=== PATIENT | male | born 1960 | race Caucasian/White ===

== ENCOUNTER 2019-01-09 20:49 | Inpatient (IN) ==
[2019-01-09] MEDS ORDERED: MORPHINE IV ONE (21:07)
[2019-01-09] MEDS ORDERED: ZOFRAN IV ONE (21:07)
[2019-01-09 21:57] LABS: BASO# 0.02 X1000 (0.0-0.2); BASO% 0.3 % (0.0-0.8); EOS# 0.13 X1000 (0.0-0.7); EOS% 2.3 % (0.0-10.0); HEMATOCRIT 36.7 % (42.0-52.0); HEMOGLOBIN 12.6 g/dL (14.0-18.0); LYMPH# 3.25 X1000 (1.2-3.4); LYMPH% 56.8 % (20.5-51.1); MCHC 34.3 g/dL (33-37); MCV 98.9 FL (81-99); MONO# 0.53 X1000 (0.11-0.59); MONO% 9.3 % (1.7-9.3); MPV 10.2 FL (7.4-10.4); NEUT# 1.79 X1000 (1.4-6.5); NEUT% 31.3 % (42.2-75.2); PLT 180 X1000 (130-400); RBC 3.71 XMIL (4.7-6.1); RDW 13.6 % (11.5-14.5); WBC 5.72 X1000 (4.8-10.8)
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
[2019-01-09 22:21] LABS: AGAP 14; ALB/GLOB RATIO 2.1; ALBUMIN 3.7 g/dL (3.5-5.0); ALKALINE PHOSPHATASE 54 U/L (32-122); BUN 13 mg/dL (8-22); CALCIUM 8.3 mg/dL (8.8-10.2); CHLORIDE 104 mmol/L (98-107); COSMO 282; CREATININE 0.6 mg/dL (0.7-1.2); ESTIMATED GFR > 60; GLUCOSE 107 mg/dL (70-104); GOT 47 U/L (10-34); GPT 19 U/L (10-44); POTASSIUM 4.1 mmol/L (3.5-5.1); SODIUM 141 mmol/L (136-145); TCO2 23 mmol/L (25-35); TOTAL BILIRUBIN 0.15 mg/dL (0.20-1.00); TOTAL PROTEIN 5.5 g/dL (6.3-8.3)
[2019-01-09] MEDS ORDERED: M.V.I.-12 10 ML, FOLIC ACID 1 MG, MAGNESIUM SULFATE 1 GM, THIAMINE 100 MG in NS 1,000 ML IV ONE (22:48)
[2019-01-09 23:26] LABS: INR 0.88; PROTIME 12.7 Seconds (11.0-16.0)
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
[2019-01-10 00:31] LABS: URINE SOURCE CATH
[2019-01-10 00:36] LABS: BILIRUBIN URINE NEGATIVE (NEGATIVE); BLOOD URINE TRACE (NEGATIVE); COLOR YELLOW; GLUCOSE URINE NEGATIVE (NEGATIVE); KETONE URINE NEGATIVE (NEGATIVE); LEUKOCYTES URINE NEGATIVE (NEGATIVE); NITRITE URINE NEGATIVE (NEGATIVE); PROTEIN URINE NEGATIVE (NEGATIVE); SP GRAVITY URINE 1.016; TURBIDITY URINE CLEAR (CLEAR); UR EPITHELIAL CELLS <10 /HPF (<10); URINE BACTERIA NEGATIVE /HPF; URINE RBC <10 /HPF (<10); URINE WBC <10 /HPF (<10); UROBILINOGEN URINE NORMAL (NORMAL)
[2019-01-10] MEDS ORDERED: TYLENOL PO PRN (00:55)
[2019-01-10] MEDS ORDERED: ATIVAN IV PRN (00:55)
[2019-01-10] MEDS ORDERED: NS 1,000 ML IV SCH (00:55)
[2019-01-10 00:56] LABS: UR AMPHETAMINES QUAL NONE DETECTED (NONE DETECT); UR BARBITUATES QUAL NONE DETECTED (NONE DETECT); UR BENZODIAZEPIN QUAL NONE DETECTED (NONE DETECT); UR CANNABINOIDS QUAL NONE DETECTED (NONE DETECT); UR COCAINE QUAL NONE DETECTED (NONE DETECT); UR METHADONE QUAL NONE DETECTED (NONE DETECT); UR OPIATES QUAL PRESUMPTIVE POSITIVE (NONE DETECT); UR OXYCODONE QUAL NONE DETECTED (NONE DETECT); UR PCP QUAL NONE DETECTED (NONE DETECT)
[2019-01-10] MEDS: LIBRIUM PO SCH ×4 (01:09→18:34)
[2019-01-10 01:10] LABS: HEMATOCRIT 35.1 % (42.0-52.0); HEMOGLOBIN 11.7 g/dL (14.0-18.0)
[2019-01-10] MEDS: MORPHINE IV PRN ×2 (01:53→07:05)
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
[2019-01-10] MEDS ORDERED: ZOFRAN IV PRN ×2 (03:30→13:27)
[2019-01-10 07:09] LABS: BASO# 0.01 X1000 (0.0-0.2); BASO% 0.1 % (0.0-0.8); EOS# 0.04 X1000 (0.0-0.7); EOS% 0.6 % (0.0-10.0); HEMATOCRIT 31.5 % (42.0-52.0); HEMOGLOBIN 10.5 g/dL (14.0-18.0); IMM GRAN# 0.02 X1000 (0.0-0.04); IMM GRAN% 0.3 % (0.0-0.5); LYMPH# 2.17 X1000 (1.2-3.4); LYMPH% 31.2 % (20.5-51.1); MCH 33.3 PG (27-31); MCHC 33.3 g/dL (33-37); MONO# 0.65 X1000 (0.11-0.59); MONO% 9.3 % (1.7-9.3); MPV 10.7 FL (7.4-10.4); NEUT# 4.07 X1000 (1.4-6.5); NEUT% 58.5 % (42.2-75.2); PLT 152 X1000 (130-400); RBC 3.15 XMIL (4.7-6.1); RDW 13.7 % (11.5-14.5); WBC 6.96 X1000 (4.8-10.8)
[2019-01-10 07:18] LABS: URINE SOURCE CATH
[2019-01-10 07:22] LABS: BILIRUBIN URINE NEGATIVE (NEGATIVE); BLOOD URINE SMALL (NEGATIVE); COLOR YELLOW; GLUCOSE URINE NEGATIVE (NEGATIVE); KETONE URINE NEGATIVE (NEGATIVE); LEUKOCYTES URINE NEGATIVE (NEGATIVE); NITRITE URINE NEGATIVE (NEGATIVE); PH URINE 5.5; PROTEIN URINE TRACE mg/dL (NEGATIVE); SP GRAVITY URINE 1.025; TURBIDITY URINE CLEAR (CLEAR); UROBILINOGEN URINE NORMAL (NORMAL)
[2019-01-10 07:25] LABS: AGAP 6; BUN 9 mg/dL (8-22); CALCIUM 7.2 mg/dL (8.8-10.2); CHLORIDE 104 mmol/L (98-107); COSMO 271; CREATININE 0.5 mg/dL (0.7-1.2); ESTIMATED GFR > 60; GLUCOSE 98 mg/dL (70-104); MAGNESIUM 1.7 mg/dL (1.5-2.7); PHOSPHORUS 3.8 mg/dL (2.7-4.5); POTASSIUM 3.6 mmol/L (3.5-5.1); SODIUM 136 mmol/L (136-145); TCO2 26 mmol/L (25-35)
--- NOTE | 2019-01-10 07:27 | Diag Imaging Result Doc PS360 ---
EXAM: CHEST-1 VIEW 01/09/2019 HISTORY: pre-op TECHNIQUE: AP portable at 2218 COMMENT: There is no evidence of acute cardiac or pulmonary disease. There may be COPD. There are some old left rib fractures. IMPRESSION: COPD. Electronically signed by Yaya Washington 01/10/2019 7:24 AM
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
[2019-01-10 07:32] LABS: UR EPITHELIAL CELLS <10 /HPF (<10); URINE BACTERIA NEGATIVE /HPF; URINE WBC <10 /HPF (<10)
[2019-01-10 07:35] LABS: URINE CASTS NONE SEEN; URINE CRYSTALS NONE SEEN; URINE YEAST NONE SEEN
[2019-01-10 07:36] LABS: URINE SMALL ROUND CELLS NONE SEEN
--- NOTE | 2019-01-10 07:45 | EKG Report ---
Test Performed on : 01/09/2019 11:52:14 PM Test Reason : pre-op Blood Pressure : / mmHG Vent. Rate : 094 BPM Atrial Rate : 094 BPM P-R Int : 136 ms QRS Dur : 086 ms QT Int : 368 ms P-R-T Axes : 073 090 075 degrees QTc Int : 460 ms Sinus rhythm. with marked sinus arrhythmia. Rightward axis Borderline ECG No previous ECGs available Unconfirmed Result
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
--- NOTE | 2019-01-10 09:36 | Diag Imaging Result Doc PS360 ---
EXAM: ELBOW COMPLETE RIGHT 01/10/2019 HISTORY: elbow pain TECHNIQUE: Right elbow three views COMMENT: There is a fracture through the olecranon fossa without significant displacement. There is no evidence of dislocation. There is a hemarthrosis. IMPRESSION: Fracture proximal ulna. Electronically signed by Yaya Washington 01/10/2019 9:34 AM
[2019-01-10] MEDS ORDERED: DIPRIVAN 1% ONE (09:56)
[2019-01-10] MEDS ORDERED: KEFZOL 1 GM/D5W 1 GM/50 ML IVPB ONE (10:48)
[2019-01-10] MEDS ORDERED: VERSED ONE (10:48)
[2019-01-10] MEDS ORDERED: DECADRON ONE (11:59)
[2019-01-10] MEDS ORDERED: ZOFRAN ONE (11:59)
[2019-01-10] MEDS ORDERED: XYLOCAINE-MPF 2% ONE (11:59)
[2019-01-10] MEDS ORDERED: FENTANYL ONE (12:03)
--- NOTE | 2019-01-10 12:59 | OPERATIVE NOTE ---
PROCEDURE DATE : 01/09/2019 PREOPERATIVE DIAGNOSES: 1. Right subtrochanteric femur fracture. 2. Right nondisplaced olecranon fracture. POSTOPERATIVE DIAGNOSES: 1. Right subtrochanteric femur fracture. 2. Right nondisplaced olecranon fracture. PROCEDURES PERFORMED: 1. TFN fixation of right subtrochanteric femur fracture. 2. Casting of right elbow olecranon fracture. SURGEON: Dr. Juan Hilliard BRAND RECORDER: Moncho Morris. Mr. Morris was necessary for proper retraction, manipulation and exposure of the procedures. ANESTHESIA: General. COMPLICATIONS: None. DESCRIPTION OF PROCEDURE: This 58-year-old male presents for reduction of right subtrochanteric femur fracture as well as casting of the right elbow. Risks, benefits and no guarantees were discussed, and he is willing to proceed. He was taken to the operating room, and satisfactory anesthesia was obtained. The right arm was placed in a long arm cast initially. This was well padded and applied and allowed to set. He was then transferred to the HANA table in gentle longitudinal traction in neutral rotation utilized to reduce the subtrochanteric femur fracture. The area was prepped and draped and a time- out taken to confirm operative site, procedure and patient. Lateral incision was made roughly 3 cm above the tip of the greater trochanter and dissection carried down to the tip of the trochanter under fluoroscopic guidance. A guidepin was then advanced through the tip of the trochanter and down the intramedullary canal and reamed with the entry reamer. This was removed and a ball-tipped guidewire inserted down the shaft. Length of the femur was selected at 440 x 11 femoral nail. A 12 mm reamer was used to ream over the guidewire. The nail was then inserted over the guidewire and fully seated and the guidewire removed. An additional lateral portal was made opposite the lesser trochanter for placement of the helical blade guide. The guide was advanced down to bone and a guidepin placed across the fracture and nail into the central aspect of the femoral neck and head with care taken to avoid any articular penetration. A 110 helical blade was selected and after reaming for this inserted over the guidewire and guidewire removed. The antirotation screw was set proximally and the guide removed from the proximal aspect of the nail. The C-arm was used to verify accurate fracture reduction and hardware placement on the proximal part of the nail. Afterwards, rotation and traction was adjusted to maintain leg length and proper rotation and 2 distal screws placed, 1 through the dynamic and 1 through the static slot to maintain the reduction using perfect hopi imaging technique. Two lateral incisions were made, and the C-arm guidance was used to place a 46 and a 48 bicortical screw through the distal aspect of the nail. Afterwards, the C-arm was utilized to verify accurate fracture reduction and hardware placement. The wounds were then irrigated and closed in layers with 2-0 Vicryl followed by skin tyler. Sterile dressings completed the closure, and the patient was recovered from anesthesia and transferred to the recovery room in stable condition. No intraoperative complications. Instrument count and sponge count were correct at the end of closure. cc: Juan Hilliard MD
[2019-01-10] MEDS: MORPHINE ONE ×3 (13:03→13:09)
[2019-01-10] MEDS ORDERED: MORPHINE IV PRN (13:27)
[2019-01-10] MEDS ORDERED: MILK OF MAGNESIA PO PRN (13:27)
[2019-01-10] MEDS ORDERED: HALDOL IV PRN (13:30)
[2019-01-10] MEDS: TYLENOL PO SCH ×3 (13:52→23:53)
[2019-01-10] MEDS: OXY IR PO PRN (13:52)
[2019-01-10] MEDS: NS 1,000 ML IV SCH ×2 (14:31→17:35)
[2019-01-10] MEDS: KEFZOL 1 GM/D5W 1 GM/50 ML IVPB IV SCH (18:34)
[2019-01-10] MEDS: NICODERM PATCH TD SCH (20:51)
[2019-01-10] MEDS: COLACE PO SCH (20:51)
[2019-01-10] MEDS ORDERED: SODIUM CHLORIDE 0.9% INJ SCH (22:15)
--- NOTE | 2019-01-10 22:31 | PROGRESS NOTE ---
DATE: 01/10/2019 SUBJECTIVE: Patient has no major complaints. He is seen postoperatively doing well. OBJECTIVE: Blood pressure is 106/70, heart rate 79, respiratory 18, temperature 97.5 degrees, 99% on room air.Cardiovascular: Regular rate and rhythm. Pulmonary: Bilateral breath sounds clear to auscultation. GI: Soft, nontender, nondistended. Bowel sounds are positive. LABORATORY DATA: White count 6, hemoglobin and hematocrit 10 and 31, platelets 152,000. Coags within normal limits. PROBLEM LIST: 1. Right hip fracture and right humeral fracture. He seems to be doing okay. Plan is to ORIF today. We will continue treatment. 2. Withdrawal syndrome. We will continue to monitor closely. 3. Need DVT GI prophylaxis. cc: Jonah Jimenez MD
[2019-01-11] MEDS ORDERED: M.V.I.-12 10 ML, FOLIC ACID 1 MG, MAGNESIUM SULFATE 1 GM, THIAMINE 100 MG in NS 1,000 ML IV SCH ×2 (00:15→10:01)
[2019-01-11] MEDS: LIBRIUM PO SCH ×4 (00:19→18:00)
[2019-01-11] MEDS: PEPCID IV SCH ×2 (00:19→11:56)
[2019-01-11] MEDS: MORPHINE IV PRN ×2 (00:30→18:26)
[2019-01-11] MEDS: KEFZOL 1 GM/D5W 1 GM/50 ML IVPB IV SCH (04:01)
[2019-01-11] MEDS: TYLENOL PO SCH ×3 (06:07→22:23)
[2019-01-11] MEDS: LOVENOX SUBQ SCH (06:07)
[2019-01-11 06:26] LABS: HEMATOCRIT 24.6 % (42.0-52.0); HEMOGLOBIN 8.1 g/dL (14.0-18.0)
[2019-01-11 06:40] LABS: AGAP 6; BUN 7 mg/dL (8-22); CALCIUM 7.5 mg/dL (8.8-10.2); CHLORIDE 104 mmol/L (98-107); COSMO 272; CREATININE 0.4 mg/dL (0.7-1.2); ESTIMATED GFR > 60; GLUCOSE 178 mg/dL (70-104); POTASSIUM 4.1 mmol/L (3.5-5.1); SODIUM 135 mmol/L (136-145); TCO2 25 mmol/L (25-35)
--- NOTE | 2019-01-11 08:00 | ORTHOPAEDICS PROGRESS NOTE ---
DATE: 01/11/2019 Mr. Larson is seen today status post closed TFN fixation of his hip and casting of his elbow. At the present time he is afebrile with stable vital signs. His hematocrit is 24. We will plan on mobilizing him today with a platform walker. We will see how he is mobilizing over the next several days. I would anticipate likely discharge home or to rehab center at the end of the week. cc: Juan Hilliard MD
[2019-01-11] MEDS: NICODERM PATCH TD SCH (08:41)
[2019-01-11] MEDS: FERROUS SULFATE PO SCH (08:41)
[2019-01-11] MEDS: NS 1,000 ML IV SCH (18:02)
[2019-01-11] MEDS: COLACE PO SCH (22:24)
--- NOTE | 2019-01-11 23:23 | PROGRESS NOTE ---
DATE: 01/11/2019 SUBJECTIVE: The patient is complaining of pain overall, but is overall doing well. OBJECTIVE: Blood pressure 112/76, heart rate 96, respiratory rate 18. Cardiovascular: Regular. Pulmonary: Bilateral breath sounds, clear to auscultation. GI: Soft, nontender, nondistended. Bowel sounds are positive. LABORATORY DATA: Hemoglobin and hematocrit 8 and 24. Basic electrolytes stable. ASSESSMENT AND PLAN: 1. Right hip fracture. Continue treatment. Gastrointestinal prophylaxis and follow closely. 2. Right nondisplaced olecranon fracture, for which he had casting. 3. Alcohol withdrawal syndrome. He seems to be stable. We will continue banana bag infusion, Librium taper and follow. 4. Gastrointestinal and deep venous thrombosis prophylaxis. We will continue Prilosec and deep venous thrombosis prophylaxis, and follow closely. 5. Disposition: The patient uninsured, unfortunately, so therefore will have difficulty with senior care facility placement, but we will continue to monitor closely. Work on physical therapy until he is ambulatory. Continue working with Social Work about outpatient options. cc: Jonah Jimenez MD
[2019-01-12] MEDS: LIBRIUM PO SCH ×3 (01:28→12:54)
[2019-01-12] MEDS: PEPCID IV SCH ×2 (06:08→09:47)
[2019-01-12] MEDS: TYLENOL PO SCH ×4 (06:11→21:40)
[2019-01-12] MEDS: LOVENOX SUBQ SCH (06:11)
[2019-01-12 07:35] LABS: AGAP 8; BUN 6 mg/dL (8-22); CALCIUM 7.8 mg/dL (8.8-10.2); CHLORIDE 106 mmol/L (98-107); COSMO 273; CREATININE 0.5 mg/dL (0.7-1.2); ESTIMATED GFR > 60; GLUCOSE 89 mg/dL (70-104); POTASSIUM 3.6 mmol/L (3.5-5.1); SODIUM 138 mmol/L (136-145); TCO2 24 mmol/L (25-35)
[2019-01-12 07:38] LABS: HEMATOCRIT 24.6 % (42.0-52.0); HEMOGLOBIN 8.1 g/dL (14.0-18.0)
[2019-01-12] MEDS: NICODERM PATCH TD SCH (09:46)
[2019-01-12] MEDS: PERIDEX MT SCH ×2 (09:47→21:41)
[2019-01-12] MEDS: FERROUS SULFATE PO SCH (09:47)
--- NOTE | 2019-01-12 13:02 | ORTHOPAEDICS PROGRESS NOTE ---
DATE: 01/12/2019 Mr. Larson is seen today status post casting of his elbow and fixation of his hip fracture. He is afebrile with stable vital signs. He is mobilizing but slowly due to the combined injuries of the upper and lower extremities. At this point in time, all incisions are clean and dry. I will need to see him next afternoon in the clinic to repeat the x-rays of the hip and elbow. He can be mobilized partial weightbearing on the right lower extremity and full weightbearing on the right upper extremity. He will need a platform walker for outpatient use. He can be discharged when his pain is controlled and there is no threat of alcohol withdrawal and he is mobilizing adequately for self-care. We will see him back in roughly 1 week's time for follow-up. We will be available as needed in the interim. cc: Juan Hilliard MD
[2019-01-12] MEDS: NS 1,000 ML IV SCH (16:36)
--- NOTE | 2019-01-12 19:18 | PROGRESS NOTE ---
DATE: 01/12/2019 SUBJECTIVE: The patient has no major complaints. OBJECTIVE: Vital signs: Seem stable. His blood pressure is 101/64, heart rate is 76, respiratory rate 20, temperature 98.5 degrees. No fevers. General: He is looking pretty well to me, all things considered. I think he is recuperating pretty well. Cardiovascular: Regular rate and rhythm. Pulmonary: Bilateral breath sounds clear to auscultation. Gastrointestinal: Soft, nontender, nondistended. Bowel sounds are positive. Extremities: No clubbing or cyanosis. Lymphatic: No peripheral edema. Neurological: Nonfocal. LABORATORY DATA: Today hemoglobin is down to 8 and hematocrit is down to 24, but they are stable. PROBLEM LIST: 1. Right hip fracture. The patient seems to be doing well. No major complaints. We are working on ambulation. He had a very severe, displaced hip fracture that was impressive, and then he had an ulnar fracture which did not look that displaced. In any case, he seems to be progressing very well. 2. Alcohol withdrawal syndrome. He is doing well. I am going to initiate a Librium taper and follow. 3. Disposition: He is homeless. He is uninsured. We will continue PT and OT until we feel like he is stable enough for discharge home. cc: Jonah Jimenez MD
[2019-01-12] MEDS: COLACE PO SCH (21:40)
[2019-01-13] MEDS: NS 1,000 ML IV SCH (05:55)
[2019-01-13] MEDS: PRILOSEC PO SCH ×2 (05:56→06:05)
[2019-01-13] MEDS: TYLENOL PO SCH ×3 (05:57→17:05)
[2019-01-13] MEDS: LOVENOX SUBQ SCH (05:57)
[2019-01-13 06:35] LABS: HEMATOCRIT 24.3 % (42.0-52.0)
[2019-01-13] MEDS: LIBRIUM PO SCH ×3 (08:36→17:05)
[2019-01-13] MEDS: THERA M PLUS PO SCH (08:36)
[2019-01-13] MEDS: FOLIC ACID PO SCH (08:37)
[2019-01-13] MEDS: VITAMIN B-1 PO SCH (08:37)
[2019-01-13] MEDS: FERROUS SULFATE PO SCH (08:37)
[2019-01-13] MEDS: PERIDEX MT SCH ×2 (08:38→20:02)
[2019-01-13] MEDS: NICODERM PATCH TD SCH (08:39)
[2019-01-13] MEDS: OXY IR PO PRN (08:45)
--- NOTE | 2019-01-13 18:07 | PROGRESS NOTE ---
DATE: 01/13/2019 SUBJECTIVE: The patient has no major complaints. OBJECTIVE: Blood pressure is stable, 120/74, heart rate 82, respiratory rate 15, temperature 98.5.Cardiovascular: Regular rate and rhythm. Pulmonary: Bilateral breath sounds clear to auscultation. GI: Soft, nontender, nondistended. Bowel sounds are positive. LABORATORY DATA: White count: Hemoglobin and hematocrit is 8 and 24. He seems to be doing okay. PROBLEM LIST: 1. Right hip fracture. Subtrochanteric fracture status post ORIF. He is doing well. He ambulated 20 feet today with PT. He seems to be doing okay, but we have very limited resources for him. He is self-pay. He is homeless, alcoholic. Looking at trying to get some sort of skilled nursing for him at least to recuperate in. 2. Alcohol withdrawal syndrome. He is on a Librium taper. We will continue to follow. No major issues associated. 3. Anemia, which is likely related to acute blood loss. We will check his iron stores and follow, although currently he is getting some iron. DISPOSITION: Pending clinical status. We will continue to follow closely. cc: Jonah Jimenez MD
[2019-01-13] MEDS: COLACE PO SCH (20:02)
[2019-01-14] MEDS: TYLENOL PO SCH ×3 (03:55→16:40)
[2019-01-14] MEDS: LOVENOX SUBQ SCH (06:07)
[2019-01-14] MEDS: PRILOSEC PO SCH (06:07)
[2019-01-14 07:26] LABS: BASO# 0.02 X1000 (0.0-0.2); BASO% 0.3 % (0.0-0.8); EOS# 0.15 X1000 (0.0-0.7); EOS% 2.3 % (0.0-10.0); HEMATOCRIT 23.6 % (42.0-52.0); HEMOGLOBIN 7.6 g/dL (14.0-18.0); IMM GRAN# 0.06 X1000 (0.0-0.04); IMM GRAN% 0.9 % (0.0-0.5); LYMPH# 1.72 X1000 (1.2-3.4); LYMPH% 26.6 % (20.5-51.1); MCH 33.3 PG (27-31); MCHC 32.2 g/dL (33-37); MCV 103.5 FL (81-99); MONO# 1.02 X1000 (0.11-0.59); MONO% 15.8 % (1.7-9.3); MPV 10.4 FL (7.4-10.4); NEUT# 3.49 X1000 (1.4-6.5); NEUT% 54.1 % (42.2-75.2); PLT 195 X1000 (130-400); RBC 2.28 XMIL (4.7-6.1); RDW 13.4 % (11.5-14.5); WBC 6.46 X1000 (4.8-10.8)
[2019-01-14 07:33] LABS: AGAP 7; BUN 7 mg/dL (8-22); CALCIUM 8.2 mg/dL (8.8-10.2); CHLORIDE 105 mmol/L (98-107); COSMO 272; CREATININE 0.6 mg/dL (0.7-1.2); ESTIMATED GFR > 60; GLUCOSE 100 mg/dL (70-104); IRON SATURATION 14 %; MAGNESIUM 1.7 mg/dL (1.5-2.7); PHOSPHORUS 3.8 mg/dL (2.7-4.5); SODIUM 137 mmol/L (136-145); TCO2 25 mmol/L (25-35); TIBC 198 ug/dL; TOTAL IRON 28 ug/dL (53-167); UNBOUND IRON 170 ug/dL (112-346)
[2019-01-14 07:52] LABS: FERRITIN 218 ng/mL (30-400)
[2019-01-14] MEDS: LIBRIUM PO SCH ×4 (09:41→21:41)
[2019-01-14] MEDS: OXY IR PO PRN ×3 (09:41→19:46)
[2019-01-14] MEDS: THERA M PLUS PO SCH (09:42)
[2019-01-14] MEDS: VITAMIN B-1 PO SCH (09:42)
[2019-01-14] MEDS: FOLIC ACID PO SCH (09:42)
[2019-01-14] MEDS: NICODERM PATCH TD SCH (09:42)
[2019-01-14] MEDS: FERROUS SULFATE PO SCH (09:42)
[2019-01-14] MEDS: PERIDEX MT SCH ×3 (09:43→21:41)
[2019-01-14] MEDS ORDERED: FERRLECIT 125 MG in NS 100 ML IV ONE (13:00)
--- NOTE | 2019-01-14 16:47 | PROGRESS NOTE ---
DATE: 01/14/2019 SUBJECTIVE: Patient has no focal complaints. OBJECTIVE: Blood pressure is 131/63, heart rate 78, respiratory rate 20, temperature 98.6 degrees, 100% on room air.Cardiovascular: Regular rate and rhythm. Pulmonary: Bilateral breath sounds. Clear to auscultation. GI: Was soft, nontender, nondistended. Bowel sounds are positive. Extremities: No clubbing or cyanosis. Lymphatic: No peripheral edema. Neurological: Nonfocal. LABORATORY DATA: White count 6, hemoglobin and hematocrit 7, 23, platelets 195,000. Basic was normal. PROBLEM LIST: 1. Right hip fracture status post open reduction internal fixation. He is doing well. Continue with PT and he is doing well. 2. Alcohol withdrawal syndrome. He is on Librium taper. 3. Anemia. That has progressed a bit. He is iron deficient which is to be expected with alcohol abuse and recent surgery. I will give him supplemental iron and follow. 4. Disposition. When we feel comfortable enough letting him go home as far as his other issues then we will do so. cc: Jonah Jimenez MD
[2019-01-14] MEDS: COLACE PO SCH ×2 (19:46→21:41)
[2019-01-15] MEDS: TYLENOL PO SCH ×3 (02:05→17:07)
[2019-01-15] MEDS: LOVENOX SUBQ SCH ×2 (05:17→05:34)
[2019-01-15] MEDS: OXY IR PO PRN ×2 (05:33→20:50)
[2019-01-15] MEDS: PRILOSEC PO SCH ×2 (05:34→06:13)
[2019-01-15 06:57] LABS: BASO# 0.02 X1000 (0.0-0.2); BASO% 0.3 % (0.0-0.8); HEMATOCRIT 23.1 % (42.0-52.0); HEMOGLOBIN 7.5 g/dL (14.0-18.0); IMM GRAN# 0.05 X1000 (0.0-0.04); IMM GRAN% 0.7 % (0.0-0.5); MCH 33.3 PG (27-31); MCHC 32.5 g/dL (33-37); MCV 102.7 FL (81-99); MONO# 1.38 X1000 (0.11-0.59); MONO% 20.7 % (1.7-9.3); MPV 10.1 FL (7.4-10.4); NEUT# 3.22 X1000 (1.4-6.5); NEUT% 48.3 % (42.2-75.2); PLT 247 X1000 (130-400); RBC 2.25 XMIL (4.7-6.1); RDW 13.4 % (11.5-14.5); WBC 6.67 X1000 (4.8-10.8)
[2019-01-15 07:19] LABS: AGAP 7; BUN 7 mg/dL (8-22); CALCIUM 8.2 mg/dL (8.8-10.2); CHLORIDE 103 mmol/L (98-107); COSMO 270; CREATININE 0.5 mg/dL (0.7-1.2); ESTIMATED GFR > 60; GLUCOSE 101 mg/dL (70-104); POTASSIUM 4.1 mmol/L (3.5-5.1); SODIUM 136 mmol/L (136-145); TCO2 26 mmol/L (25-35)
[2019-01-15 07:24] LABS: LYMPHS 34 % (21-51); MONO 4 % (1-9); NRBC 1 % (0-0); SEGS 58 % (42-75)
[2019-01-15] MEDS: THERA M PLUS PO SCH (09:16)
[2019-01-15] MEDS: ICAR-C PO SCH (09:17)
[2019-01-15] MEDS: VITAMIN B-1 PO SCH (09:17)
[2019-01-15] MEDS: PERIDEX MT SCH ×2 (09:17→20:50)
[2019-01-15] MEDS: LIBRIUM PO SCH ×2 (09:17→20:50)
[2019-01-15] MEDS: FOLIC ACID PO SCH (09:17)
[2019-01-15] MEDS: NICODERM PATCH TD SCH (09:17)
--- NOTE | 2019-01-15 17:44 | PROGRESS NOTE ---
DATE: 01/15/2019 SUBJECTIVE: The patient is doing well. No major complaints. OBJECTIVE: Vital Signs: Blood pressure 97/51, heart rate 83, respiratory rate 20, temperature 98.8, 100% on room air. Cardiovascular: Regular rate and rhythm. Pulmonary: Bilateral breath sounds. Clear to auscultation. Gastrointestinal: GI was soft, nontender, nondistended. Bowel sounds are positive. Extremities: Right hip looks good. His right arm is in a cast. LABORATORY DATA: Hemoglobin and hematocrit slowly trends downward, 7.5 and 23. White count normal. Basic looks good. PROBLEM LIST: 1. Right hip fracture status post ORIF. This will be postop day #5. The patient's limitations are no outpatient rehab options. 2. Alcohol withdrawal syndrome. He is on a Librium taper. Continue to follow. 3. Anemia. We will continue iron supplementation. DISPOSITION: He has walked 25 feet. We need to get a sense of what we can do to ensure a safe discharge. Again, I am not sure how much he needs to ambulate before we feel comfortable letting him go, but tomorrow I think it is possible he could possibly go. cc: Jonah Jimenez MD
[2019-01-15 18:16] LABS: AGAP 8; ALB/GLOB RATIO 1.2; ALBUMIN 2.8 g/dL (3.5-5.0); ALKALINE PHOSPHATASE 42 U/L (32-122); BUN 8 mg/dL (8-22); CHLORIDE 102 mmol/L (98-107); COSMO 269; CREATININE 0.5 mg/dL (0.7-1.2); ESTIMATED GFR > 60; GLUCOSE 100 mg/dL (70-104); GOT 17 U/L (10-34); GPT 9 U/L (10-44); POTASSIUM 3.8 mmol/L (3.5-5.1); SODIUM 135 mmol/L (136-145); TCO2 25 mmol/L (25-35); TOTAL PROTEIN 5.2 g/dL (6.3-8.3)
[2019-01-15] MEDS: COLACE PO SCH (20:50)
[2019-01-16] MEDS: TYLENOL PO SCH ×3 (01:10→16:32)
[2019-01-16] MEDS: PRILOSEC PO SCH ×2 (05:54→06:02)
[2019-01-16] MEDS: LOVENOX SUBQ SCH (05:54)
[2019-01-16 07:16] LABS: BASO# 0.03 X1000 (0.0-0.2); BASO% 0.4 % (0.0-0.8); EOS# 0.21 X1000 (0.0-0.7); HEMOGLOBIN 8.1 g/dL (14.0-18.0); IMM GRAN# 0.12 X1000 (0.0-0.04); IMM GRAN% 1.7 % (0.0-0.5); LYMPH# 1.81 X1000 (1.2-3.4); LYMPH% 25.5 % (20.5-51.1); MCH 33.2 PG (27-31); MCHC 32.4 g/dL (33-37); MCV 102.5 FL (81-99); MONO# 1.73 X1000 (0.11-0.59); MONO% 24.4 % (1.7-9.3); MPV 9.9 FL (7.4-10.4); NEUT# 3.19 X1000 (1.4-6.5); PLT 328 X1000 (130-400); RBC 2.44 XMIL (4.7-6.1); RDW 13.4 % (11.5-14.5); WBC 7.09 X1000 (4.8-10.8)
[2019-01-16] MEDS: LIBRIUM PO SCH ×2 (07:59→20:44)
[2019-01-16] MEDS: ICAR-C PO SCH (08:00)
[2019-01-16] MEDS: NICODERM PATCH TD SCH (08:00)
[2019-01-16] MEDS: PERIDEX MT SCH ×2 (08:00→20:44)
[2019-01-16] MEDS: VITAMIN B-1 PO SCH (08:01)
[2019-01-16] MEDS: FOLIC ACID PO SCH (08:01)
[2019-01-16] MEDS: OXY IR PO PRN ×3 (08:01→20:44)
[2019-01-16] MEDS: THERA M PLUS PO SCH (08:01)
[2019-01-16] MEDS ORDERED: LIBRIUM PO SCH (09:00)
--- NOTE | 2019-01-16 17:03 | PROGRESS NOTE ---
DATE: 01/16/2019 SUBJECTIVE: Patient has no major complaints. Today he felt a little worse than he did yesterday so we will continue to monitor. OBJECTIVE: Blood pressure is 125/79, heart rate of 88, respiratory rate 20, temperature 98.3 degrees, 98% on room air.Cardiovascular: Regular rate and rhythm. Pulmonary: Bilateral breath sounds clear to auscultation. Gastrointestinal: Soft, nontender, nondistended. Bowel sounds are positive. PROBLEM LIST: 1. Right hip fracture, right olecranon fracture. He seems to be progressing well. He ambulate about 50 feet today. We are still working on rehabilitation options. 2. Alcohol withdrawal syndrome. He is on a Librium taper. 3. Anemia. He is on iron supplementation. DISPOSITION: He was able to walk 50 feet. Maybe at 100 feet, we can anticipate discharge. I am not quite sure what our criteria would be, but again, he does not have an official issue there, but we will continue to monitor. cc: Jonah Jimenez MD
[2019-01-16] MEDS: COLACE PO SCH (20:45)
[2019-01-17] MEDS: TYLENOL PO SCH ×2 (00:31→09:20)
[2019-01-17] MEDS: PRILOSEC PO SCH (06:09)
[2019-01-17] MEDS: LOVENOX SUBQ SCH (06:09)
[2019-01-17] MEDS ORDERED: LIBRIUM PO SCH (09:00)
[2019-01-17] MEDS: PERIDEX MT SCH ×2 (09:18→22:30)
[2019-01-17] MEDS: OXY IR PO PRN (09:19)
[2019-01-17] MEDS: FOLIC ACID PO SCH (09:19)
[2019-01-17] MEDS: THERA M PLUS PO SCH (09:19)
[2019-01-17] MEDS: ICAR-C PO SCH (09:19)
[2019-01-17] MEDS: NICODERM PATCH TD SCH (09:20)
[2019-01-17] MEDS: VITAMIN B-1 PO SCH (09:20)
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
[2019-01-17] MEDS: NORCO-10 PO PRN ×2 (17:34→22:30)
[2019-01-17] MEDS: MIRALAX PO SCH (17:40)
[2019-01-17] MEDS: COLACE PO SCH (22:30)
[2019-01-17] MEDS: LACTULOSE PO SCH (22:32)
[2019-01-18] MEDS: PRILOSEC PO SCH (06:30)
[2019-01-18] MEDS: LOVENOX SUBQ SCH (06:30)
[2019-01-18 06:54] LABS: BASO# 0.02 X1000 (0.0-0.2); BASO% 0.3 % (0.0-0.8); EOS# 0.29 X1000 (0.0-0.7); EOS% 3.9 % (0.0-10.0); HEMOGLOBIN 9.1 g/dL (14.0-18.0); IMM GRAN# 0.08 X1000 (0.0-0.04); IMM GRAN% 1.1 % (0.0-0.5); LYMPH% 20.1 % (20.5-51.1); MCH 33.7 PG (27-31); MCHC 32.5 g/dL (33-37); MCV 103.7 FL (81-99); MONO# 2.19 X1000 (0.11-0.59); MONO% 29.4 % (1.7-9.3); MPV 9.3 FL (7.4-10.4); NEUT# 3.38 X1000 (1.4-6.5); NEUT% 45.2 % (42.2-75.2); PLT 485 X1000 (130-400); RDW 13.3 % (11.5-14.5); WBC 7.46 X1000 (4.8-10.8)
[2019-01-18 07:24] LABS: AGAP 10; BUN 10 mg/dL (8-22); CALCIUM 8.9 mg/dL (8.8-10.2); CHLORIDE 100 mmol/L (98-107); COSMO 273; CREATININE 0.6 mg/dL (0.7-1.2); ESTIMATED GFR > 60; GLUCOSE 104 mg/dL (70-104); POTASSIUM 4.1 mmol/L (3.5-5.1); SODIUM 137 mmol/L (136-145); TCO2 27 mmol/L (25-35)
--- NOTE | 2019-01-18 09:06 | Diag Imaging Result Doc PS360 ---
EXAM: ELBOW 2 VIEWS RIGHT HISTORY: fx TECHNIQUE: Right elbow, three views COMPARISON: 01/10/2019 FINDINGS: There is now an external cast about the elbow. The olecranon fracture is by at least 5 mm. There is slight angulation of the olecranon in relation to the shaft on the current study. Electronically signed by Xander Marinelli 01/18/2019 9:04 AM
[2019-01-18] MEDS: ICAR-C PO SCH (09:15)
[2019-01-18] MEDS: FOLIC ACID PO SCH (09:15)
[2019-01-18] MEDS: LACTULOSE PO SCH ×2 (09:15→21:51)
[2019-01-18] MEDS: PERIDEX MT SCH ×2 (09:15→21:52)
[2019-01-18] MEDS: MIRALAX PO SCH (09:15)
[2019-01-18] MEDS: VITAMIN B-1 PO SCH (09:16)
[2019-01-18] MEDS: NICODERM PATCH TD SCH (09:16)
[2019-01-18] MEDS: THERA M PLUS PO SCH (09:16)
[2019-01-18] MEDS: NORCO-10 PO PRN ×2 (09:23→18:56)
[2019-01-18 10:00] LABS: BANDS 2 % (0-1); EOS 6 % (1-10); LYMPHS 18 % (21-51); MONO 20 % (1-9); SEGS 52 % (42-75)
[2019-01-18] MEDS ORDERED: MOTRIN PO PRN (14:13)
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
--- NOTE | 2019-01-18 15:55 | PROGRESS NOTE ---
DATE: 01/18/2019 INTERVAL HISTORY: The patient with no complaints aside from some increase in right hip pain with ambulation. Pain overall well controlled. No acute events overnight. REVIEW OF SYSTEMS: Twelve point review of systems negative as per interval history. LABORATORY: WBC 7.46, hemoglobin 9.1, hematocrit 28.0, and platelets 485,000. Sodium 137, potassium 4.1, creatinine 0.6, and glucose 104. IMAGING: Right elbow x-ray showing olecranon fracture by at least 5 mm and slight angulation of the olecranon in relation to the E shaft on the current study. VITALS: T-max 99.0, pulse 76, respirations 18, blood pressure 92/55, and O2 saturation 95% on room air. PHYSICAL EXAMINATION: General: No acute distress. Vitals: As above. HEENT: Normocephalic, atraumatic. Moist mucous membranes. No cervical adenopathy. Cardiovascular: Regular rate and rhythm. No murmurs, rubs, or gallops. Pulmonary: Clear to auscultation bilaterally. No wheezes, rales, or rhonchi noted. Abdomen: Soft, nontender, and nondistended. Bowel sounds positive. Extremities: Peripheral pulses are intact. No clubbing or cyanosis. Right arm in cast. Right hip incision clean, dry, and intact. Neurologic: Cranial nerves grossly intact. No focal deficits identified. Psychiatric: Normal mood, slightly odd/flat affect. Oriented x3. Skin: No new rashes or lesions noted. ASSESSMENT AND PLAN: 1. Right hip fracture status post surgical repair. Working with PT. Added some ibuprofen for pain control. Tried to get him off of narcotics. 2. Right elbow fracture. Arm in cast. X-ray today showing some separation and rotation. We will ask Ortho to look at it, and let us know if it is enough to be a problem. The patient was recently scheduled for follow-up with Ortho tomorrow anyway. 3. Alcohol abuse and withdrawal. Stabilized at this point. No longer requiring benzo's. 4. Anemia, likely alcohol related. Stable. Continue to monitor. 5. Hyponatremia, resolved. 6. Disposition: Anticipate discharge to [facility] once patient is ambulating sufficiently and cleared to use a cot by PT, assuming that further intervention on his elbow is not needed. addendum: ortho now planning on surgery for patient's elbow tomorrow. an additional arm surgery may make using a walker difficult and further delay disharge. [facility]
[2019-01-18] MEDS: COLACE PO SCH (21:52)
[2019-01-19] MEDS: LOVENOX SUBQ SCH (05:06)
[2019-01-19] MEDS: PRILOSEC PO SCH ×2 (05:07→06:27)
[2019-01-19] MEDS ORDERED: MIRALAX PO PRN (09:30)
[2019-01-19] MEDS ORDERED: KEFZOL 1 GM/D5W 1 GM/50 ML IVPB ONE (10:21)
[2019-01-19] MEDS ORDERED: XYLOCAINE-MPF 2% ONE (10:22)
[2019-01-19] MEDS ORDERED: DIPRIVAN 1% ONE (10:22)
[2019-01-19] MEDS ORDERED: FENTANYL ONE (10:24)
[2019-01-19] MEDS ORDERED: NEOSPORIN G.U. IRRIGANT ONE (10:27)
[2019-01-19] MEDS ORDERED: MARCAINE 0.5% PF ONE (10:27)
--- NOTE | 2019-01-19 10:42 | PROGRESS NOTE ---
DATE: 01/19/2019 INTERVAL HISTORY: No acute event overnight. The patient continues to have constipation and has not had a bowel movement. The elbow x-ray performed yesterday did detect that he had displaced fracture of olecranon process, for which he is likely to undergo surgical intervention today. SUBJECTIVE: He is denying any chest pain, shortness of breath, nausea/vomiting, abdominal pain. He is eating okay. Otherwise, he states he is able to ambulate reasonably well with the use of a walker. We discussed about surgical intervention planned today and answered all of his questions. OBJECTIVE: Vitals: Temperature 98.3 degrees, pulse 80, respiratory rate 20, blood pressure 99/57, saturating 95% on room air. Physical Examination: A well-built man, not in any acute distress. Oral cavity is moist. He does have poor dentition air entry bilaterally equal. No wheeze, rhonchi, or crackles. S1, S2 normal. No murmur, rub, or gallop. Abdomen is soft, nontender. Active bowel sounds. No hepatosplenomegaly. Peripheral pulses bilaterally are equal. Right arm is in a cast, and he is able to wiggle his fingers and has good perfusion of his toes. Right hip incision is clean, dry, and intact. He is alert and oriented x3. ASSESSMENT AND PLAN: 1. Right subtrochanteric fracture of femur, status post transfemoral nailing and fixation on January 10. Continue [place], ibuprofen for pain control and increase the stool softener dose with MiraLAX, lactulose, bisacodyl suppositories for drug induced constipation. Continue weightbearing as per Orthopedics' recommendation. 2. Right olecranon fracture with displacement status post cast. The patient is likely to undergo surgical intervention today. Follow up Orthopedics' recommendation. 3. Macrocytic anemia related to alcohol use and alcohol abuse without current signs of withdrawal. Continue him on iron, multivitamin, folic acid, and thiamine. He is no longer requiring benzodiazepine. 4. Tobacco abuse. Continue nicotine patch. DISPOSITION: I will await Orthopedics' recommendation about postoperative course for the olecranon fracture after surgery. Depending on that, I would anticipate discharge to detention in next 24 to 48 hours. Apparently patient preferred staying in [place] and [facility] only accepts patient during nighttime and during daytime, the patients have to manage their own accommodation. Plan of care discussed with the patient. All of his questions have been answered. cc: Sourav Andujar MD MTDD
[2019-01-19] MEDS ORDERED: EPHEDRINE ONE (11:03)
[2019-01-19] MEDS ORDERED: DECADRON ONE (11:37)
[2019-01-19] MEDS ORDERED: ZOFRAN ONE (11:37)
[2019-01-19] MEDS ORDERED: TORADOL ONE (11:49)
[2019-01-19] MEDS: DILAUDID ONE ×2 (12:35→12:38)
[2019-01-19] MEDS ORDERED: NS 1,000 ML ONE (12:51)
[2019-01-19] MEDS ORDERED: MORPHINE IV PRN (13:14)
[2019-01-19] MEDS ORDERED: ZOFRAN IV PRN (13:14)
[2019-01-19] MEDS ORDERED: MILK OF MAGNESIA PO PRN (13:14)
[2019-01-19] MEDS ORDERED: HALDOL IV PRN (13:15)
--- NOTE | 2019-01-19 14:36 | OPERATIVE NOTE ---
PROCEDURE DATE: 01/09/2019 PREOPERATIVE DIAGNOSIS: Displaced/unstable right olecranon fracture. POSTOPERATIVE DIAGNOSIS: Displaced/unstable right olecranon fracture. PROCEDURE: Open reduction, internal fixation of right elbow. SURGEON: Vivien Hilliard MD ANESTHESIA: General. CARTON GLUING MACHINE OPERATOR: KRISTI Ascencio. Mr. Hernandez is necessary for proper manipulation and retraction of the arm. COMPLICATION: None. ANESTHESIA: General was noted. PROCEDURE IN DETAIL: A 59-year-old male presents for surgical ORIF of the right elbow. Risks, benefits, and no guarantees were discussed, and the patient is willing to proceed. He was taken to the operating room and satisfactory anesthesia obtained. The right arm was prepped and draped in the usual sterile fashion. A time-out was taken to confirm operative site, procedure, and patient. The arm was then wrapped with an Esmarch and tourniquet inflated to 250 mmHg. A posterior approach was undertaken to the right olecranon in the midline, with care taken to avoid any dissection nearing the cubital tunnel or ulnar nerve. Displaced fracture of the olecranon was noted. This was debrided at the fracture site with a rongeur and curette. It was then reduced anatomically with a reduction clamp. A Synthes precontoured olecranon locking plate was then assembled to the olecranon and held in position. Three screws were placed in the olecranon, followed by 2 compression screws to compress the fracture proximally. An additional 4 locking screws were placed to combine a total of 5 locking screws proximally and 4 bicortical screws distally. Afterwards, the elbow was taken through range of motion with anatomic reduction and secure fixation. The wound was irrigated with irrigant and closed in layers with 2-0 Vicryl and skin tyler. Sterile dressings were applied and tourniquet released with good return of capillary blood flow. The patient was placed in a long-arm cast. He was recovered from anesthesia and transferred to the recovery room in stable condition. No intraoperative complications were noted. Instrument count and sponge count were correct at the time of closure. cc: Juan Hilliard MD
[2019-01-19] MEDS: TYLENOL PO SCH ×2 (16:23→21:00)
[2019-01-19] MEDS: LACTULOSE PO SCH ×2 (16:36→21:00)
[2019-01-19] MEDS: VITAMIN B-1 PO SCH (16:36)
[2019-01-19] MEDS: NICODERM PATCH TD SCH (16:36)
[2019-01-19] MEDS: FOLIC ACID PO SCH (16:36)
[2019-01-19] MEDS: THERA M PLUS PO SCH (16:36)
[2019-01-19] MEDS: ICAR-C PO SCH (16:38)
[2019-01-19] MEDS: PERIDEX MT SCH ×2 (17:22→21:00)
[2019-01-19] MEDS: KEFZOL 1 GM/D5W 1 GM/50 ML IVPB IV SCH (18:35)
[2019-01-19] MEDS ORDERED: MIRALAX PO SCH (21:00)
[2019-01-19] MEDS: COLACE PO SCH (21:00)
[2019-01-19] MEDS ORDERED: COLACE PO SCH (21:00)
[2019-01-20] MEDS: DULCOLAX PR SCH ×3 (00:16→21:21)
[2019-01-20] MEDS: KEFZOL 1 GM/D5W 1 GM/50 ML IVPB IV SCH ×2 (03:08→12:34)
[2019-01-20] MEDS: TYLENOL PO SCH ×3 (06:12→21:22)
[2019-01-20] MEDS: PRILOSEC PO SCH (06:12)
[2019-01-20 06:34] LABS: HEMATOCRIT 25.8 % (42.0-52.0); HEMOGLOBIN 8.3 g/dL (14.0-18.0)
[2019-01-20 06:54] LABS: AGAP 9; BUN 8 mg/dL (8-22); CALCIUM 8.6 mg/dL (8.8-10.2); CHLORIDE 103 mmol/L (98-107); COSMO 273; CREATININE 0.5 mg/dL (0.7-1.2); ESTIMATED GFR > 60; GLUCOSE 110 mg/dL (70-104); POTASSIUM 4.3 mmol/L (3.5-5.1); SODIUM 137 mmol/L (136-145); TCO2 25 mmol/L (25-35)
[2019-01-20] MEDS: LACTULOSE PO SCH ×2 (08:28→21:22)
[2019-01-20] MEDS: ICAR-C PO SCH (08:28)
[2019-01-20] MEDS: FERROUS SULFATE PO SCH (08:28)
[2019-01-20] MEDS: VITAMIN B-1 PO SCH (08:28)
[2019-01-20] MEDS: PERIDEX MT SCH ×2 (08:28→21:23)
[2019-01-20] MEDS: ASPIRIN PO SCH (08:28)
[2019-01-20] MEDS: FOLIC ACID PO SCH (08:28)
[2019-01-20] MEDS: THERA M PLUS PO SCH (08:29)
[2019-01-20] MEDS: NICODERM PATCH TD SCH (08:39)
--- NOTE | 2019-01-20 14:04 | ORTHOPAEDICS PROGRESS NOTE ---
DATE: 01/20/2019 SUBJECTIVE DATA: Mr. Larson is on postop day 1 of his right olecranon ORIF. He reports he is doing well at this time. He reports his pain level is a 1/10 at this time. He denies any problems at this time. OBJECTIVE DATA: The cast is intact to the right upper extremity. There is good capillary refill. The patient can move all fingers without difficulty. There is good sensation. The patient has good range of motion to the right lower extremity as well. He can flex his quadriceps muscles without difficulty. His tyler on his right hip incision are healing and clean and dry. There is negative Homans sign. There is no redness or signs of infection at this time. ASSESSMENT: Right olecranon fracture, right hip fracture. PLAN: We will plan to remove his tyler from his right hip today. He can be discharged per Orthopedics. He will need to follow back up in the office within 10 to 14 days to remove tyler and get his cast off. The patient understands this. We will check back on him then. Dictated by KRISTI Ascencio for Juan Hilliard MD cc: KRISTI Ascencio MD
[2019-01-20] MEDS: NS 1,000 ML IV SCH (17:30)
--- NOTE | 2019-01-20 17:34 | PROGRESS NOTE ---
DATE: 01/20/2019 INTERVAL HISTORY: The patient underwent open reduction, internal fixation of right elbow yesterday, which he tolerated well. SUBJECTIVE: He is denying any new complaints. He had a small bowel movement overnight. We discussed about continuing with the current bowel regimen currently. VITAL SIGNS: Currently vitals suggest temperature of 98.1 degrees, pulse 81, respiratory 20, blood pressure 104/68, saturating 100% on room air. PHYSICAL EXAMINATION: General: Does not appear in any acute distress. Oral cavity is moist. Poor dentition. Air entry bilaterally equal. No wheeze, rhonchi, crackles. Cardiovascular: S1, S2 normal. No murmur or gallop. Abdomen: Soft, nontender. Active bowel sounds. No hepatosplenomegaly present. Peripheral pulses are equal bilaterally. Right arm is in cast. He is able to wiggle his fingers with good perfusion of his toes. The right arm and forearm is in cast. Right hip incision is clean, dry, intact. He is alert and oriented x3. LABORATORY DATA: His hemoglobin is 8.3, hematocrit of 25.8. His electrolytes are essentially normal. ASSESSMENT AND PLAN: 1. Right subtrochanteric fracture of femur, status post transfemoral nailing and fixation on January 10 and right olecranon fracture with displacement, status post open reduction and internal fixation on 01/19/2019. Continue [place], ibuprofen for pain control and current stool softener regimen. Continue weightbearing as tolerated as per Orthopedics recommendation and use off platform walker while ambulation. He should follow up with Orthopedics in 10 to 14 days. At that point, they will discussed about management of right arm cast. 2. Alcohol abuse without any signs of withdrawal. Continue home multivitamin, folic acid, thiamine, and continue iron for what appears to be macrocytic anemia. 3. Tobacco abuse. Continue nicotine patch. 4. Disposition: The patient is willing to go to [facility] on January 21. I have been informed that [facility] would deliver medicine inside the hospital tomorrow, and after that, I will discharge him to that senior living place. Plan of care discussed with him. All of his questions have been answered. cc: Sourav Andujar MD
[2019-01-20] MEDS: OXY IR PO PRN (21:20)
[2019-01-20] MEDS: COLACE PO SCH (21:22)
[2019-01-21] MEDS: NS 1,000 ML IV SCH (00:28)
[2019-01-21] MEDS: OXY IR PO PRN ×3 (00:32→16:47)
[2019-01-21] MEDS: TYLENOL PO SCH ×2 (05:26→13:30)
[2019-01-21] MEDS: PRILOSEC PO SCH ×2 (05:26→06:08)
[2019-01-21 06:35] LABS: HEMATOCRIT 26.8 % (42.0-52.0); HEMOGLOBIN 8.6 g/dL (14.0-18.0)
[2019-01-21] MEDS: ASPIRIN PO SCH (11:49)
[2019-01-21] MEDS: THERA M PLUS PO SCH (11:49)
[2019-01-21] MEDS: NICODERM PATCH TD SCH (11:49)
[2019-01-21] MEDS: VITAMIN B-1 PO SCH (11:49)
[2019-01-21] MEDS: FOLIC ACID PO SCH (11:49)
[2019-01-21] MEDS: LACTULOSE PO SCH (11:50)
[2019-01-21] MEDS: DULCOLAX PR SCH (11:50)
[2019-01-21] MEDS: FERROUS SULFATE PO SCH (11:51)
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
[2019-01-21 15:49] VITALS: BP 112/73
== END 2019-01-21 16:00 | disposition home or self-care (01) | DRG 481 ==
LOC: ED 20:49 → 4N 23:36 → SUATTDRO 23:36
PROVIDERS: ATTEND Internal Medicine
CPT/HCPCS: 51702; 70450; 71010; 71045; 73070; 73080; 73502; 73562; 76000; 80048; 80053; 80101; 80301; 80307; 80320; 80324; 80345; 80346; 80353; 80358; 80361; 80365; 81001; 82055; 82607; 82728; 82746; 83540; 83550; 83735; 83992; 84100; 85014; 85018; 85025; 85610; 85730; 86850; 86900; 86901; 93005; 94760; 94761; 94762; 94799; 96365; 96375; 97110; 97116; 97162; 97165; 97530; 97535; 99285; A9270; C1713; G0431; G0434; G0479; G0480; G6040; J0690; J1100; J1170; J1650; J1885; J2250; J2270; J2405; J2916; J3010; J3411; J3475; J7030; S0020; S0028